=== PATIENT | female | born 1945 | race Two or more races ===

== ENCOUNTER 2018-04-02 18:33 | Emergency (ER) | payer OTHER ==
[~2018-04-02] VITALS: Ht 157.5 cm; Wt 73.5 kg
[2018-04-02] MEDS ORDERED: ASPIRIN81 MG (18:53)
[2018-04-02] MEDS ORDERED: LOSARTAN POTASS50 MG (18:53)
[2018-04-02] MEDS ORDERED: SINGULAIR10 MG (18:53)
== END 2018-04-02 22:28 | disposition home or self-care (01) ==
LOC: ER 18:33
DX: M75.51 Bursitis of right shoulder (principal); M54.2 Cervicalgia

== ENCOUNTER 2025-01-02 21:32 | Emergency (ER) | payer OTHER ==
[~2025-01-02] VITALS: Ht 154.9 cm; Wt 63.5 kg
[~2025-01-02 21:32] MED LIST: ASPIRIN81 MG; LOSARTAN POTASS50 MG; SINGULAIR10 MG
[2025-01-02] MEDS ORDERED: INNOPRAN XL80 MG PO (22:01)
[2025-01-02] MEDS ORDERED: CRESTOR40 MG PO (22:01)
[2025-01-02] MEDS ORDERED: ARICEPT5 MG PO (22:02)
[2025-01-02] MEDS ORDERED: PLAVIX75 MG PO (22:02)
[2025-01-03] MEDS ORDERED: METHYLPREDNISOLONE SOD SUCC 125 MG VIAL ONE (00:38)
[2025-01-03] MEDS ORDERED: DIPHENHYDRAMINE HCL 50 MG/ML VIAL 1ML ONE (00:38)
[2025-01-03] MEDS ORDERED: DIPHENHYDRAMINE HCL 50 MG/ML VIAL 1ML IV ONE (00:45)
[2025-01-03] MEDS ORDERED: METHYLPREDNISOLONE SOD SUCC 125 MG VIAL IV ONE (00:45)
[2025-01-03] MEDS ORDERED: ALLEGRA ALLERG180 MG PO (01:44)
== END 2025-01-03 01:47 | disposition home or self-care (01) ==
LOC: ER 21:34
DX: R21 Rash and other nonspecific skin eruption (principal); Z88.0 Allergy status to penicillin; I10 Essential (primary) hypertension
CPT/HCPCS: 96365; 99282; J1200

== ENCOUNTER 2025-06-22 20:25 | Emergency (ER) | payer OTHER ==
[~2025-06-22] VITALS: Ht 162.6 cm; Wt 63.5 kg
[~2025-06-22 20:25] MED LIST changes: +ALLEGRA ALLERG180 MG PO; +ARICEPT5 MG PO; +CRESTOR40 MG PO; +INNOPRAN XL80 MG PO; +PLAVIX75 MG PO
[2025-06-22] MEDS ORDERED: ATORVASTATIN CA10 MG (20:33)
[2025-06-22] MEDS ORDERED: MYSOLINE50 MG (20:33)
[2025-06-22] MEDS ORDERED: 0.9 % SODIUM CHLORIDE 1,000 ML IV STA (21:31)
[2025-06-22] MEDS ORDERED: FAMOTIDINE/PF 20 MG/2 ML VIAL IV STA (21:33)
[2025-06-22] MEDS ORDERED: FAMOTIDINE/PF 20 MG/2 ML VIAL ONE (22:01)
[2025-06-22 22:07] LABS: BASO % 0.4 % (0.1-1.2); EOS # 0.19 (0.04-0.54); EOS % 2.5 % (0.7-7.0); LYMPH # 1.25 (1.18-3.74); LYMPH % 16.5 % (19.3-53.1); MEAN PLATELET VOLUME 10.20 fl (9.4-12.4); MONO # 1.06 (0.24-0.82); NEUT # 5.00 (1.56-6.13); NEUT % 66.2 % (34.0-71.1); RED CELL DISTRIBUTION WIDTH 12.7 % (11.6-14.4)
[2025-06-22 22:11] LABS: MONO % 14.0 % (4.7-12.5)
[2025-06-22 22:31] LABS: ALT/SGPT 34.0 U/L (12-78); AST/SGOT 30.0 U/L (15-37); BILIRUBIN TOTAL 0.63 mg/dL (0.3-1.2); BUN CREA RATIO 12.0 (7.0-25.0); CREATININE SERUM 0.85 mg/dL (0.55-1.02); GFR 64.35; GLOBULINA 4.0 G/DL (2.4-3.5); GLUCOSE FASTING 112.0 mg/dL (65-100); OSMOLALITY SERUM 279.0 MOSM/KG (275-295)
[2025-06-22 23:19] LABS: URINE APPEARANCE Clear; URINE BILIRRUBIN Small (NEGATIVE); URINE BLOOD Negative; URINE COLOR Dark Yellow; URINE GLUCOSE Negative (NEGATIVE); URINE KETONE 15 (NEGATIVE); URINE LEUKOCYTE Trace; URINE NITRATE Negative; URINE PROTEIN 30 (NEGATIVE); URINE UROBILINOGEN 1.0 E.U./dl
[2025-06-22 23:24] LABS: URINE BACTERIA 33.6 uL (0.0-1933); URINE CAST 8.65 uL (0.0-1.40); URINE EPITHELIAL CELLS 39.0 uL (0.0-38.8); URINE RBC 28.3 uL (0.0-20.8); URINE WBC 10.6 uL (0.0-23.2)
[2025-06-22 23:43] LABS: URINE CRYSTALS FEW /HPF; URINE MUCUS SCANT
[2025-06-23 02:04] VITALS: BP 112/54; O2SAT 98
[2025-06-23 03:25] LABS: FECAL LEUKOCYTES POSITIVE (NEGATIVE); ob POSITIVE (NEGATIVE)
== END 2025-06-23 02:06 | disposition home or self-care (01) ==
LOC: ER 20:25
PROVIDERS: General Practice
DX: R19.7 Diarrhea, unspecified (principal); Z88.0 Allergy status to penicillin; I10 Essential (primary) hypertension

== ENCOUNTER 2025-07-19 18:19 | Emergency (ER) | payer OTHER ==
[~2025-07-19] VITALS: Ht 160 cm; Wt 56.7 kg
[~2025-07-19 18:19] MED LIST changes: +ATORVASTATIN CA10 MG; +MYSOLINE50 MG
[2025-07-19] MEDS ORDERED: CIPROFLOXACIN IN 5 % DEXTROSE 400 MG/200 ML PIGGYBAG IV STA (20:55)
[2025-07-19 21:25] LABS: BASO % 0.7 % (0.1-1.2); EOS # 0.17 (0.04-0.54); EOS % 2.9 % (0.7-7.0); LYMPH # 2.43 (1.18-3.74); LYMPH % 41.6 % (19.3-53.1); MEAN PLATELET VOLUME 9.90 fl (9.4-12.4); MONO # 0.78 (0.24-0.82); NEUT # 2.41 (1.56-6.13); NEUT % 41.2 % (34.0-71.1); RED CELL DISTRIBUTION WIDTH 13.7 % (11.6-14.4)
[2025-07-19 21:37] LABS: URINE APPEARANCE Clear; URINE BILIRRUBIN Negative (NEGATIVE); URINE BLOOD Negative; URINE COLOR Yellow; URINE GLUCOSE Negative (NEGATIVE); URINE KETONE Trace (NEGATIVE); URINE LEUKOCYTE Small; URINE NITRATE Negative; URINE PROTEIN Negative (NEGATIVE); URINE UROBILINOGEN 0.2 E.U./dl
[2025-07-19 21:40] LABS: URINE BACTERIA 40.7 uL (0.0-1933); URINE CAST 2.49 uL (0.0-1.40); URINE EPITHELIAL CELLS 18.2 uL (0.0-38.8); URINE RBC 4.3 uL (0.0-20.8); URINE WBC 23.2 uL (0.0-23.2)
[2025-07-19 21:43] LABS: MONO % 13.4 % (4.7-12.5)
[2025-07-19 21:52] LABS: BUN CREA RATIO 26.0 (7.0-25.0); CREATININE SERUM 0.94 mg/dL (0.55-1.02); GFR 57.29; GLUCOSE FASTING 95.0 mg/dL (65-100); OSMOLALITY SERUM 283.0 MOSM/KG (275-295)
[2025-07-19] MEDS ORDERED: KETOROLAC TROMETHAMINE 60 MG VIAL IM STA (23:05)
== END 2025-07-19 23:10 | disposition home or self-care (01) ==
LOC: ER 18:19
DX: R30.0 Dysuria (principal); N39.3 Stress incontinence (female) (male); I10 Essential (primary) hypertension; Z88.0 Allergy status to penicillin